=== PATIENT | male | born 1975 | race American Indian/Alaskan Native ===

== ENCOUNTER 2020-05-08 06:46 | Outpatient (CLI) | payer OTHER, MEDICARE ==
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
--- NOTE | 2020-05-08 11:10 | XRay Report ---
ORBITS 3 VIEWS INDICATION: CLEAR FOR MRI/ FOREIGN BODY. COMPARISON: No relevant prior imaging study available. FINDINGS: No radiodense foreign bodies are seen. No acute skeletal abnormality. IMPRESSION: 1. No foreign bodies are identified. Signer Name: Michael Deleon MD Signed: 05/08/2020 11:06 AM Workstation Name: [id number]
== END 2020-05-08 06:47 | disposition home or self-care (01) ==
LOC: MRI 06:46
PROVIDERS: ATTEND Student in an Organized Health Care Education/Training Program
DX: S21.142A Puncture wound with foreign body of left front wall of thorax without penetration into thoracic cavity, initial encounter (principal); S21.141A Puncture wound with foreign body of right front wall of thorax without penetration into thoracic cavity, initial encounter; X58.XXXA Exposure to other specified factors, initial encounter; Y93.89 Activity, other specified; Y92.89 Other specified places as the place of occurrence of the external cause; Y99.8 Other external cause status
CPT/HCPCS: 71046